=== PATIENT | female | born 1990 | race Caucasian/White ===

== ENCOUNTER 2017-02-22 08:50 | Emergency (ER) | payer OTHER ==
[~2017-02-22] VITALS: Ht 167.6 cm; Wt 85.7 kg
[~2017-02-22 08:50] MED LIST: ASPIR 8181 MG; ATARAX,VISTARIL25 MG PO; CHROMAGEN,1 CAPSULE PO; NO HOME MEDS; NOHOMEMEDS; PRENATAL MULTI1 EAC2; PRENATAL1 EACH PO; REGLAN10 MG PO; ULTRAM50 MG PO
[2017-02-22 09:22] LABS: ADD MIUA? YES; BILIRUBIN NEGATIVE; BLOOD NEGATIVE; COLOR YELLOW ((YELLOW)); GLUCOSE (STRIP) NEGATIVE; KETONES 5; LEUKOCYTES MODERATE; NITRITE NEGATIVE; PROTEIN (STRIP) NEGATIVE; SPECIFIC GRAVITY 1.018 (1.000-1.030); UROBILINOGEN 0.2 MG/DL (0.2-1.0)
[2017-02-22 09:24] LABS: BACTERIA RARE /HPF; EPITHELIAL CELLS 4+ /HPF; MUCUS TRACE /LPF; RED BLOOD CELLS 0-5 /HPF (0-5); UCUL ADDED? NO
[2017-02-22] MEDS ORDERED: MACROBID100 MG PO (12:22)
[2017-02-22] MEDS ORDERED: FLEXERIL10 MG PO (12:22)
[2017-02-22 12:32] VITALS: BP 122/78
== END 2017-02-22 12:33 | disposition home or self-care (01) ==
LOC: EME 08:50
DX: O9A.212 Injury, poisoning and certain other consequences of external causes complicating pregnancy, second trimester (principal); S39.012A Strain of muscle, fascia and tendon of lower back, initial encounter; O23.42 Unspecified infection of urinary tract in pregnancy, second trimester; X58.XXXA Exposure to other specified factors, initial encounter; O99.89 Other specified diseases and conditions complicating pregnancy, childbirth and the puerperium; H53.8 Other visual disturbances; O36.8120 Decreased fetal movements, second trimester, not applicable or unspecified; Z3A.17 17 weeks gestation of pregnancy; Z87.891 Personal history of nicotine dependence
CPT/HCPCS: 81003; 99281; 99284

== ENCOUNTER 2017-07-31 07:05 | Inpatient (IN) | payer OTHER ==
[2017-07-31] VITALS (16 sets, daily range): BP systolic 98–125; BP diastolic 51–76
[~2017-07-31] VITALS: Ht 167.6 cm; Wt 96.1 kg
[~2017-07-31 07:05] MED LIST changes: +FLEXERIL10 MG PO; +MACROBID100 MG PO
[2017-07-31 08:06] LABS: EOSINOPHIL (%) 1.2 % (0-5); EOSINOPHIL COUNT 0.1 K/uL (0-0.3); HEMATOCRIT 35.9 % (36.0-46.0); IMMATURE GRANULOCYTE (%) 0.5 % (0.0-0.7); INSTRUMENT ABS NEUTROPHIL CT 5.4 K/uL; LYMPHOCYTE COUNT 1.5 K/uL (1.0-2.8); MCH 30.4 PG (29.0-34.0); MCHC 33.7 G/DL (30.0-36.0); MCV 90.2 FL (83-99); MEAN PLAT.VOLUME 9.8 uM^3 (9.5-12.4); MONOCYTE (%) 8.6 % (3-12); MONOCYTE COUNT 0.7 K/uL (0-0.8); NEUTROPHIL (%) 70.2 % (45-76); NEUTROPHIL COUNT 5.4 K/uL (1.8-6.4); PLATELET COUNT 194 K/uL (156-360); RBC DIS.WIDTH-CV 13.2 % (11.8-14.6); RBC DIS.WIDTH-SD 43.6 % (39-53); RED BLOOD COUNT 3.98 M/uL (3.80-5.20); WHITE BLOOD COUNT 7.7 K/uL (4.1-10.2)
[2017-07-31] MEDS ORDERED: IBUPROFEN800 MG PO (17:43)
== END 2017-08-02 13:33 | disposition home or self-care (01) | DRG 775 ==
LOC: LDRP-OP 07:05 → 2WEST 07:06 → LDRP-OP 20:06 → 2WEST 08-02 13:33 → LDRP-OP 09-02 10:17
PROVIDERS: Obstetrics & Gynecology Gynecology
DX: O99.824 Streptococcus B carrier state complicating childbirth (principal); O99.214 Obesity complicating childbirth; E66.9 Obesity, unspecified; Z3A.39 39 weeks gestation of pregnancy; Z37.0 Single live birth; Z87.891 Personal history of nicotine dependence; O69.1XX0 Labor and delivery complicated by cord around neck, with compression, not applicable or unspecified; Z68.30 Body mass index [BMI] 30.0-30.9, adult
CPT/HCPCS: 85025; J1050; J2540; J7120

== ENCOUNTER 2017-11-25 10:09 | Emergency (ER) | payer OTHER ==
[~2017-11-25] VITALS: Ht 167.6 cm; Wt 89.1 kg
[~2017-11-25 10:09] MED LIST changes: +IBUPROFEN800 MG PO
[2017-11-25 10:48] LABS: HEMATOCRIT 40.5 % (36.0-46.0); HEMOGLOBIN 13.7 G/DL (11.9-15.5); MCH 28.4 PG (29.0-34.0); MCHC 33.8 G/DL (30.0-36.0); PLATELET COUNT 229 K/uL (156-360); RBC DIS.WIDTH-CV 12.7 % (11.8-14.6); RBC DIS.WIDTH-SD 38.8 % (39-53); RED BLOOD COUNT 4.82 M/uL (3.80-5.20); WHITE BLOOD COUNT 6.4 K/uL (4.1-10.2)
[2017-11-25 10:59] LABS: CHLORIDE 108 mEq/L (99-109); POTASSIUM 4.3 mEq/L (3.7-5.4); SODIUM 140 mEq/L (136-147)
[2017-11-25 11:00] LABS: GLUCOSE 94 mg/dL (70-99)
[2017-11-25 11:04] LABS: CREATININE 0.9 mg/dL (0.6-1.3); GFR ESTIMATE (CALCULATED) > 59 mL/min/
[2017-11-25 11:05] LABS: UREA NITROGEN (BUN) 12 mg/dL (9-23)
[2017-11-25 11:09] LABS: TROP-I INTERPRETATION NEGATIVE; TROPONIN-I < 0.01 ng/mL (0.0-0.30)
[2017-11-25 11:13] LABS: QUANTITATIVE HCG < 4.0 MIU/ML
[2017-11-25 11:29] LABS: APPEARANCE SL.HAZY ((CLEAR)); BILIRUBIN NEGATIVE; BLOOD LARGE; COLOR YELLOW ((YELLOW)); GLUCOSE (STRIP) NEGATIVE; KETONES NEGATIVE; LEUKOCYTES NEGATIVE; NITRITE NEGATIVE; PROTEIN (STRIP) 30; SPECIFIC GRAVITY 1.023 (1.000-1.030); UROBILINOGEN 0.2 MG/DL (0.2-1.0)
[2017-11-25 11:40] LABS: BACTERIA RARE /HPF; EPITHELIAL CELLS RARE /HPF; MUCUS 2+ /LPF; RED BLOOD CELLS TNTC /HPF (0-5); WHITE BLOOD CELLS 0-5 /HPF (0-5)
[2017-11-25 12:18] VITALS: BP 107/78
== END 2017-11-25 12:23 | disposition home or self-care (01) ==
LOC: EME 10:09
PROVIDERS: Nurse Practitioner Family
DX: R55 Syncope and collapse (principal); O72.1 Other immediate postpartum hemorrhage; R53.83 Other fatigue; R42 Dizziness and giddiness; R51 Headache; Z97.5 Presence of (intrauterine) contraceptive device; F17.200 Nicotine dependence, unspecified, uncomplicated
CPT/HCPCS: 71046; 80048; 81003; 84484; 84702; 85027; 93005; 99281; 99284